=== PATIENT | female | born 1955 | race Caucasian/White ===

== ENCOUNTER 2017-02-22 09:42 | Emergency (ER) | payer OTHER ==
--- NOTE | 2017-02-22 10:12 | EDM.PDOC ---
ED HPI GENERAL MEDICAL PROBLEM - General Chief Complaint: Genitourinary Problem Stated Complaint: ABD PAINS, BLADDER? [id number] Time Seen by Provider: 02/22/17 09:55 Source of Information: Reports: Patient History Limitations: Reports: No Limitations - History of Present Illness INITIAL COMMENTS - FREE TEXT/NARRATIVE: This 61 yo female patient reports to the ED with a 1-2 week history of frequent urination and burning with urination. The patient reports she has had previous urinary tract infections and has been taking cranberry pills as well as drinking cranberry juice. The patient reports she has not been seen by her primary care facility of these symptoms. The patient reports a history of diabetes, hypertension, COPD and hyperlipidemia. Duration: Week(s): (2), Constant Location: Reports: Abdomen Quality: Reports: Burning, Dull Severity: Moderate Improves with: Reports: None Worsens with: Reports: None Associated Symptoms: Reports: No Other Symptoms - Related Data Allergies Allergy/AdvReac Type Severity Reaction Status Date / Time Penicillins Allergy Rash Verified 02/22/17 09:54 Home Meds: Home Meds Albuterol [IJP: Ventolin HFA] 2 puff INH ASDIRECTED 02/22/17 [History] Insulin Glarg,Human.Rec.Analog [LantUS Solostar] 10 units SUBCUT DAILY 02/22/17 [History] Lisinopril/Hydrochlorothiazide [Lisinopril-Hctz 20-25 mg Tab] 1 each PO DAILY [History] Omeprazole 40 mg PO DAILY 02/22/17 [History] Tiotropium [Spiriva HandiHaler] 18 mcg INH DAILY 02/22/17 [History] atorvaSTATin [Lipitor] 10 mg PO DAILY 02/22/17 [History] metFORMIN [Glucophage] 1,000 mg PO BID 02/22/17 [History] Social & Family History - Tobacco Use Smoking Status *Q: Never Smoker Second Hand Smoke Exposure: Yes - Caffeine Use Caffeine Use: Reports: Coffee, Soda, Tea - Recreational Drug Use Recreational Drug Use: No ED ROS GENERAL - Review of Systems Review Of Systems: ROS reveals no pertinent complaints other than HPI. ED EXAM, RENAL/ - Physical Exam Exam: See Below Exam Limited By: No Limitations General Appearance: Alert, WD/WN, Mild Distress Eye Exam: Bilateral Eye: EOMI, Normal Inspection, PERRL Ears: Normal External Exam, Normal Canal, Hearing Grossly Normal, Normal TMs Nose: Normal Inspection, Normal Mucosa, No Blood Throat/Mouth: Normal Inspection, Normal Lips, Normal Teeth, Normal Gums, Normal Oropharynx, Normal Voice, No Airway Compromise Head: Atraumatic, Normocephalic Neck: Normal Inspection, Supple, Non-Tender, Full Range of Motion Respiratory/Chest: No Respiratory Distress, Lungs Clear, Normal Breath Sounds, No Accessory Muscle Use, Chest Non-Tender Cardiovascular: Normal Peripheral Pulses, Regular Rate, Rhythm, No Edema, No Gallop, No JVD, No Murmur, No Rub GI/Abdominal: Normal Bowel Sounds, Soft, Non-Tender, No Organomegaly, No Distention, No Abnormal Bruit, No Mass (Female) Exam: Deferred Rectal (Female) Exam: Deferred Back Exam: Normal Inspection, Full Range of Motion, NT Extremities: Normal Range of Motion, Non-Tender, Normal Capillary Refill, Pedal Edema Neurological: Alert, Oriented, CN II-XII Intact, Normal Cognition, Normal Gait, Normal Reflexes, No Motor/Sensory Deficits Psychiatric: Normal Affect, Normal Mood Skin Exam: Warm, Dry, Intact, Normal Color, No Rash Lymphatic: No Adenopathy Course - Vital Signs Last Recorded V/S: Last Vital Signs Temp 37.0 C 02/22/17 09:52 Pulse 85 02/22/17 09:52 Resp 16 02/22/17 09:52 BP 148/81 H 02/22/17 09:52 Pulse Ox 100 02/22/17 09:52 - Orders/Labs/Meds Orders: Active Orders 24 hr Category Date Time Status UA W/MICROSCOPIC [URIN] Stat Lab 02/22/17 09:47 Received Departure - Departure Time of Disposition: 10:13 Disposition: Home, Self-Care 01 Condition: Fair Clinical Impression: UTI, Urinary tract infectious disease - Discharge Information Instructions: Urinary Tract Infection, Adult, [id number] Care Plan Goals: The patient was advised of the examination and lab results during the visit. The patient was given a script for Bactrim DS to take 1 by mouth 2 times per day for 7 days. The patient was encouraged to increase her oral fluid intake. If the patient has any additional symptoms or concerns, the patient should follow-up with her primary care facility or return to the emergency department. - My Orders Last 24 Hours: My Active Orders 02/22/17 09:47 UA W/MICROSCOPIC [URIN] Stat - Assessment/Plan Last 24 Hours: My Active Orders 02/22/17 09:47 UA W/MICROSCOPIC [URIN] Stat
== END 2017-02-22 10:20 | disposition home or self-care (01) ==
LOC: DL.ED 09:42
DX: N39.0 Urinary tract infection, site not specified (principal); I10 Essential (primary) hypertension; E11.9 Type 2 diabetes mellitus without complications; J44.9 Chronic obstructive pulmonary disease, unspecified; E78.5 Hyperlipidemia, unspecified; Z88.0 Allergy status to penicillin; Z79.4 Long term (current) use of insulin; Z79.899 Other long term (current) drug therapy; Z77.22 Contact with and (suspected) exposure to environmental tobacco smoke (acute) (chronic)
CPT/HCPCS: 81001; 87086; 99283